=== PATIENT | male | born 1950 | race Caucasian/White ===

== ENCOUNTER 2017-09-22 07:56 | Outpatient (CLI) | payer OTHER | END 2017-09-22 08:25 | disposition home or self-care (01) | LOC: LAB 07:56 | DX: B20 Human immunodeficiency virus [HIV] disease (principal) ==

== ENCOUNTER → 2018-03-31 | Outpatient (CLI) | payer OTHER | END | disposition home or self-care (01) | LOC: LAB 07:07 | DX: B20 Human immunodeficiency virus [HIV] disease (principal); I10 Essential (primary) hypertension; E11.9 Type 2 diabetes mellitus without complications; R30.0 Dysuria; E78.00 Pure hypercholesterolemia, unspecified ==

== ENCOUNTER → 2018-06-04 06:55 | Outpatient (CLI) | payer OTHER | END | disposition home or self-care (01) | LOC: LAB 06:55 | DX: N42.89 Other specified disorders of prostate (principal) ==

== ENCOUNTER 2018-09-07 07:35 | Outpatient (CLI) | payer OTHER | END 2018-09-07 07:49 | disposition home or self-care (01) | LOC: LAB 07:35 | DX: E11.9 Type 2 diabetes mellitus without complications (principal); E78.00 Pure hypercholesterolemia, unspecified; I10 Essential (primary) hypertension ==

== ENCOUNTER 2019-03-08 06:35 | Outpatient (CLI) | payer OTHER | END 2019-03-08 15:00 | disposition home or self-care (01) | LOC: LAB 06:35 | DX: E11.9 Type 2 diabetes mellitus without complications (principal); I10 Essential (primary) hypertension; E78.00 Pure hypercholesterolemia, unspecified; N30.00 Acute cystitis without hematuria ==

== ENCOUNTER 2019-07-16 07:55 | Outpatient (CLI) | payer OTHER | END 2019-07-16 08:03 | disposition home or self-care (01) | LOC: LAB 07:55 | DX: N42.0 Calculus of prostate (principal) ==

== ENCOUNTER 2019-09-06 06:58 | Outpatient (CLI) | payer OTHER | END 2019-09-06 07:04 | disposition home or self-care (01) | LOC: LAB 06:58 | DX: E11.9 Type 2 diabetes mellitus without complications (principal); I10 Essential (primary) hypertension; E78.00 Pure hypercholesterolemia, unspecified; R30.0 Dysuria ==

== ENCOUNTER → 2020-03-27 07:36 | Outpatient (CLI) | payer OTHER | END | disposition home or self-care (01) | LOC: LAB 07:36 | PROVIDERS: ATTEND Internal Medicine Infectious Disease | DX: R30.0 Dysuria (principal); I10 Essential (primary) hypertension; E11.00 Type 2 diabetes mellitus with hyperosmolarity without nonketotic hyperglycemic-hyperosmolar coma (NKHHC); E78.00 Pure hypercholesterolemia, unspecified ==

== ENCOUNTER 2020-08-14 08:29 | Outpatient (CLI) | payer OTHER | END 2020-08-14 08:38 | disposition home or self-care (01) | LOC: LAB 08:29 | PROVIDERS: ATTEND Urology | DX: N40.1 Benign prostatic hyperplasia with lower urinary tract symptoms (principal) ==

== ENCOUNTER → 2020-11-13 07:30 | Outpatient (CLI) | payer OTHER | END | disposition home or self-care (01) | LOC: LAB 07:30 | PROVIDERS: ATTEND Internal Medicine Infectious Disease | DX: I10 Essential (primary) hypertension (principal); E11.9 Type 2 diabetes mellitus without complications; E78.00 Pure hypercholesterolemia, unspecified; D50.8 Other iron deficiency anemias; R30.0 Dysuria ==

== ENCOUNTER → 2021-05-22 07:39 | Outpatient (CLI) | payer OTHER | END | disposition home or self-care (01) | LOC: LAB 07:39 | PROVIDERS: ATTEND Internal Medicine Infectious Disease | DX: I10 Essential (primary) hypertension (principal); E11.9 Type 2 diabetes mellitus without complications; E78.00 Pure hypercholesterolemia, unspecified ==

== ENCOUNTER → 2021-08-21 07:39 | Outpatient (CLI) | payer OTHER | END | disposition home or self-care (01) | LOC: LAB 07:39 | PROVIDERS: ATTEND Urology | DX: N40.0 Benign prostatic hyperplasia without lower urinary tract symptoms (principal) ==

== ENCOUNTER 2021-11-13 06:41 | Outpatient (CLI) | payer OTHER | END 2021-11-13 06:53 | disposition home or self-care (01) | LOC: LAB 06:41 | PROVIDERS: ATTEND Internal Medicine Infectious Disease | DX: E11.9 Type 2 diabetes mellitus without complications (principal); I10 Essential (primary) hypertension; E78.00 Pure hypercholesterolemia, unspecified; D50.9 Iron deficiency anemia, unspecified; R30.0 Dysuria; B20 Human immunodeficiency virus [HIV] disease ==

== ENCOUNTER → 2022-05-13 06:38 | Outpatient (CLI) | payer OTHER | END | disposition home or self-care (01) | LOC: LAB 06:38 | PROVIDERS: ATTEND Internal Medicine Infectious Disease | DX: I10 Essential (primary) hypertension (principal); E11.9 Type 2 diabetes mellitus without complications; E78.00 Pure hypercholesterolemia, unspecified; D50.9 Iron deficiency anemia, unspecified; E30.0 Delayed puberty ==

== ENCOUNTER → 2022-09-10 07:22 | Outpatient (CLI) | payer OTHER | END | disposition home or self-care (01) | LOC: LAB 07:22 | PROVIDERS: ATTEND Urology | DX: N40.0 Benign prostatic hyperplasia without lower urinary tract symptoms (principal) ==

== ENCOUNTER → 2022-11-05 06:57 | Outpatient (CLI) | payer OTHER | END | disposition home or self-care (01) | LOC: LAB 06:57 | DX: B20 Human immunodeficiency virus [HIV] disease (principal); E11.9 Type 2 diabetes mellitus without complications; E78.00 Pure hypercholesterolemia, unspecified; D50.9 Iron deficiency anemia, unspecified; R30.0 Dysuria ==

== ENCOUNTER 2023-02-12 06:56 | Outpatient (CLI) | payer OTHER | END 2023-02-12 06:57 | disposition home or self-care (01) | LOC: LAB 06:56 | DX: B20 Human immunodeficiency virus [HIV] disease (principal) ==

== ENCOUNTER → 2023-05-20 06:39 | Outpatient (CLI) | payer OTHER ==
[2023-05-20 07:20] LABS: PH,URINE 5.5 (5.0-8.0); URINE APPEARANCE Clear; URINE BILIRRUBIN Negative (NEGATIVE); URINE BLOOD Negative; URINE COLOR Yellow; URINE GLUCOSE Negative (NEGATIVE); URINE LEUKOCYTE Negative; URINE NITRATE Negative; URINE PROTEIN Negative (NEGATIVE); URINE UROBILINOGEN 0.2 E.U./dl
[2023-05-20 07:31] LABS: URINE BACTERIA 42.8 uL (0.0-1933); URINE EPITHELIAL CELLS 9.4 uL (0.0-38.8); URINE WBC 4.1 uL (0.0-23.2)
[2023-05-20 07:35] LABS: HEMATOCRIT 44.5 % (39.0-48.0); HEMOGLOBIN 14.9 g/dL (13-16.00); MEAN CELL VOLUME 100.6 fL (80.0-100.00); MEAN CORPUSCULAR HEMOGLOBIN 33.7 pg (27.00-32.0); MEAN CORPUSCULAR HGB CONC 33.6 g/dl (32.0-36.0); PLATELET COUNT 216 K/uL (150-450); RED BLOOD COUNT 4.43 M/uL (4.00-6.00); RED CELL DISTRIBUTION WIDTH 13.3 % (11.5-14.5)
[2023-05-20 07:43] LABS: ALBUMIN 3.8 gm/dL (3.4-5.0); BILIRUBIN TOTAL 0.62 mg/dL (0.3-1.2); CALCIUM 8.9 mg/dL (8.5-10.1); CHOL HDL RATIO 3.6 (0-5.0); CREATININE SERUM 1.07 mg/dL (0.70-1.30); GFR 67.74; POTASSIUM 4.31 mEq/L (3.5-5.1); TOTAL PROTEIN 6.8 gm/dL (6.4-8.2)
== END | disposition home or self-care (01) ==
LOC: LAB 06:39
DX: E11.9 Type 2 diabetes mellitus without complications (principal); E78.00 Pure hypercholesterolemia, unspecified; R30.0 Dysuria; D50.9 Iron deficiency anemia, unspecified; B20 Human immunodeficiency virus [HIV] disease

== ENCOUNTER 2023-06-11 09:26 | Outpatient (CLI) | payer OTHER ==
[2023-06-11 10:36] LABS: T4 TOTAL 9.33 UG/DL (4.5-12.1); TSH 1.26 uIU/mL (0.358-3.74)
== END 2023-06-11 09:28 | disposition home or self-care (01) ==
LOC: LAB 09:26
PROVIDERS: ATTEND Internal Medicine Infectious Disease
DX: E03.8 Other specified hypothyroidism (principal)

== ENCOUNTER 2023-09-09 07:15 | Outpatient (CLI) | payer OTHER ==
[2023-09-09 08:21] LABS: PH,URINE 5.5 (5.0-8.0); URINE APPEARANCE Clear; URINE BILIRRUBIN Negative (NEGATIVE); URINE BLOOD Negative; URINE COLOR Yellow; URINE GLUCOSE Negative (NEGATIVE); URINE LEUKOCYTE Negative; URINE NITRATE Negative; URINE PROTEIN Negative (NEGATIVE); URINE UROBILINOGEN 0.2 E.U./dl
[2023-09-09 08:25] LABS: URINE BACTERIA 17.6 uL (0.0-1933); URINE EPITHELIAL CELLS 8.1 uL (0.0-38.8); URINE WBC 5.4 uL (0.0-23.2)
== END 2023-09-09 07:21 | disposition home or self-care (01) ==
LOC: LAB 07:15
PROVIDERS: ATTEND Urology
DX: N40.1 Benign prostatic hyperplasia with lower urinary tract symptoms (principal)

== ENCOUNTER 2023-11-26 07:02 | Outpatient (CLI) | payer OTHER ==
[2023-11-26 08:08] LABS: PH,URINE 5.5 (5.0-8.0); URINE APPEARANCE Clear; URINE BILIRRUBIN Negative (NEGATIVE); URINE BLOOD Negative; URINE COLOR Yellow; URINE GLUCOSE Negative (NEGATIVE); URINE LEUKOCYTE Negative; URINE NITRATE Negative; URINE PROTEIN Negative (NEGATIVE); URINE UROBILINOGEN 0.2 E.U./dl
[2023-11-26 08:12] LABS: HEMATOCRIT 45.9 % (39.0-48.0); HEMOGLOBIN 15.3 g/dL (13-16.00); MEAN CELL VOLUME 97.8 fL (80.0-100.00); MEAN CORPUSCULAR HEMOGLOBIN 32.6 pg (27.00-32.0); MEAN CORPUSCULAR HGB CONC 33.3 g/dl (32.0-36.0); PLATELET COUNT 220 K/uL (150-450); RED BLOOD COUNT 4.69 M/uL (4.00-6.00); RED CELL DISTRIBUTION WIDTH 14.1 % (11.5-14.5)
[2023-11-26 08:13] LABS: URINE BACTERIA 15.1 uL (0.0-1933); URINE EPITHELIAL CELLS 6.9 uL (0.0-38.8); URINE WBC 3.3 uL (0.0-23.2)
[2023-11-26 08:30] LABS: URINE RBC 1.2 uL (0.0-20.8)
[2023-11-26 08:47] LABS: BILIRUBIN TOTAL 0.58 mg/dL (0.3-1.2); CALCIUM 9.8 mg/dL (8.5-10.1); CHOL HDL RATIO 2.9 (0-5.0); CREATININE SERUM 0.97 mg/dL (0.70-1.30); GFR 75.86; GLOBULINA 3.2 G/DL (2.4-3.5); TOTAL PROTEIN 7.2 gm/dL (6.4-8.2)
== END 2023-11-26 14:39 | disposition home or self-care (01) ==
LOC: LAB 07:02
PROVIDERS: ATTEND Internal Medicine Infectious Disease
DX: B20 Human immunodeficiency virus [HIV] disease (principal); E11.9 Type 2 diabetes mellitus without complications; E78.00 Pure hypercholesterolemia, unspecified; R30.0 Dysuria; I10 Essential (primary) hypertension

== ENCOUNTER → 2024-06-01 06:32 | Outpatient (CLI) | payer OTHER ==
[2024-06-01 07:17] LABS: HEMOGLOBIN 14.3 g/dL (13-16.00); MEAN CELL VOLUME 101.8 fL (80.0-100.00); MEAN CORPUSCULAR HEMOGLOBIN 34.8 pg (27.00-32.0); MEAN CORPUSCULAR HGB CONC 34.1 g/dl (32.0-36.0); PLATELET COUNT 214 K/uL (150-450); RED BLOOD COUNT 4.12 M/uL (4.00-6.00); RED CELL DISTRIBUTION WIDTH 13.7 % (11.5-14.5)
[2024-06-01 07:18] LABS: URINE APPEARANCE Clear; URINE BILIRRUBIN Negative (NEGATIVE); URINE BLOOD Negative; URINE COLOR Yellow; URINE GLUCOSE Negative (NEGATIVE); URINE KETONE Negative (NEGATIVE); URINE LEUKOCYTE Negative; URINE NITRATE Negative; URINE PROTEIN Negative (NEGATIVE); URINE UROBILINOGEN 0.2 E.U./dl
[2024-06-01 07:21] LABS: URINE BACTERIA 26.4 uL (0.0-1933); URINE EPITHELIAL CELLS 7.8 uL (0.0-38.8)
[2024-06-01 07:23] LABS: URINE CAST 0.15 uL (0.0-1.40); URINE RBC 1.2 uL (0.0-20.8)
[2024-06-01 07:50] LABS: ALBUMIN 3.9 gm/dL (3.4-5.0); BILIRUBIN TOTAL 0.38 mg/dL (0.3-1.2); CALCIUM 9.3 mg/dL (8.5-10.1); CHOL HDL RATIO 3.9 (0-5.0); CREATININE SERUM 0.95 mg/dL (0.70-1.30); GFR 77.5; GLOBULINA 3.1 G/DL (2.4-3.5); POTASSIUM 4.76 mEq/L (3.5-5.1)
[2024-06-04 10:47] LABS: hiv 1 < 20 (.)
== END | disposition home or self-care (01) ==
LOC: LAB 06:32
PROVIDERS: ATTEND Internal Medicine Infectious Disease
DX: D50.9 Iron deficiency anemia, unspecified (principal); R30.0 Dysuria; I10 Essential (primary) hypertension; E11.9 Type 2 diabetes mellitus without complications; E78.00 Pure hypercholesterolemia, unspecified; B20 Human immunodeficiency virus [HIV] disease

== ENCOUNTER 2024-09-24 06:32 | Outpatient (CLI) | payer OTHER ==
[2024-09-24 07:40] LABS: URINE APPEARANCE Clear; URINE BILIRRUBIN Negative (NEGATIVE); URINE BLOOD Negative; URINE COLOR Yellow; URINE GLUCOSE Negative (NEGATIVE); URINE KETONE Negative (NEGATIVE); URINE LEUKOCYTE Negative; URINE NITRATE Negative; URINE PROTEIN Negative (NEGATIVE); URINE UROBILINOGEN 0.2 E.U./dl
[2024-09-24 07:41] LABS: URINE BACTERIA 31.8 uL (0.0-1933); URINE EPITHELIAL CELLS 10.4 uL (0.0-38.8); URINE WBC 5.8 uL (0.0-23.2)
[2024-09-24 08:05] LABS: URINE CAST 0.14 uL (0.0-1.40); URINE RBC 1.9 uL (0.0-20.8)
== END 2024-09-24 06:39 | disposition home or self-care (01) ==
LOC: LAB 06:32
DX: N40.0 Benign prostatic hyperplasia without lower urinary tract symptoms (principal)

== ENCOUNTER 2024-11-17 06:39 | Outpatient (CLI) | payer OTHER ==
[2024-11-17 07:29] LABS: PH,URINE 5.5 (5.0-8.0); URINE APPEARANCE Clear; URINE BACTERIA 35.4 uL (0.0-1933); URINE BILIRRUBIN Negative (NEGATIVE); URINE BLOOD Negative; URINE COLOR Dark Yellow; URINE EPITHELIAL CELLS 9.6 uL (0.0-38.8); URINE GLUCOSE Negative (NEGATIVE); URINE KETONE Negative (NEGATIVE); URINE LEUKOCYTE Trace; URINE NITRATE Negative; URINE PROTEIN Negative (NEGATIVE); URINE RBC 3.9 uL (0.0-20.8); URINE WBC 3.4 uL (0.0-23.2)
[2024-11-17 07:31] LABS: URINE CAST 0.73 uL (0.0-1.40)
[2024-11-17 07:47] LABS: HEMATOCRIT 44.3 % (39.0-48.0); HEMOGLOBIN 14.9 g/dL (13-16.00); MEAN CELL VOLUME 100.6 fL (80.0-100.00); MEAN CORPUSCULAR HEMOGLOBIN 33.7 pg (27.00-32.0); MEAN CORPUSCULAR HGB CONC 33.5 g/dl (32.0-36.0); PLATELET COUNT 288 K/uL (150-450); RED CELL DISTRIBUTION WIDTH 13.6 % (11.5-14.5)
[2024-11-17 08:54] LABS: ALBUMIN 3.4 gm/dL (3.4-5.0); BILIRUBIN TOTAL 0.75 mg/dL (0.3-1.2); CALCIUM 9.6 mg/dL (8.5-10.1); CHOL HDL RATIO 2.8 (0-5.0); CREATININE SERUM 0.99 mg/dL (0.70-1.30); GFR 73.89; GLOBULINA 3.8 G/DL (2.4-3.5); POTASSIUM 4.76 mEq/L (3.5-5.1); TOTAL PROTEIN 7.2 gm/dL (6.4-8.2)
== END 2024-11-17 06:43 | disposition home or self-care (01) ==
LOC: LAB 06:39
DX: B20 Human immunodeficiency virus [HIV] disease (principal); E78.1 Pure hyperglyceridemia; E11.9 Type 2 diabetes mellitus without complications; I10 Essential (primary) hypertension; E78.00 Pure hypercholesterolemia, unspecified; R30.0 Dysuria; E55.9 Vitamin D deficiency, unspecified

== ENCOUNTER 2024-11-29 06:50 | Outpatient (CLI) | payer OTHER ==
[2024-11-29 07:55] LABS: HEMATOCRIT 42.3 % (39.0-48.0); HEMOGLOBIN 14.3 g/dL (13-16.00); MEAN CELL VOLUME 100.7 fL (80.0-100.00); MEAN CORPUSCULAR HGB CONC 33.8 g/dl (32.0-36.0); PLATELET COUNT 332 K/uL (150-450); RED BLOOD COUNT 4.21 M/uL (4.00-6.00); RED CELL DISTRIBUTION WIDTH 13.8 % (11.5-14.5)
[2024-11-29 08:11] LABS: INR 1.04; PARTIAL THROMBOPLASTIN TIME 27.6 SECONDS (22.0-34.0); PROTHROMBIN TIME 11.3 SECONDS (9.0-11.5)
[2024-11-29 08:28] LABS: ALBUMIN 3.4 gm/dL (3.4-5.0); BILIRUBIN TOTAL 0.36 mg/dL (0.3-1.2); CALCIUM 9.3 mg/dL (8.5-10.1); CREATININE SERUM 1.05 mg/dL (0.70-1.30); GFR 69.04; GLOBULINA 3.3 G/DL (2.4-3.5); POTASSIUM 4.53 mEq/L (3.5-5.1); TOTAL PROTEIN 6.7 gm/dL (6.4-8.2)
== END 2024-11-29 06:55 | disposition home or self-care (01) ==
LOC: LAB 06:50
PROVIDERS: ATTEND Ophthalmology
DX: D68.8 Other specified coagulation defects (principal); H25.013 Cortical age-related cataract, bilateral; Z01.811 Encounter for preprocedural respiratory examination; I10 Essential (primary) hypertension

== ENCOUNTER 2025-02-04 08:54 | Outpatient (CLI) | payer OTHER | END 2025-02-04 09:02 | disposition home or self-care (01) | LOC: SONOGRAMA 08:54 | PROVIDERS: ATTEND Urology | DX: N40.1 Benign prostatic hyperplasia with lower urinary tract symptoms (principal); R36.1 Hematospermia ==

== ENCOUNTER 2025-04-22 06:56 | Outpatient (CLI) | payer OTHER ==
[2025-04-22 08:46] LABS: BUN CREA RATIO 22.0 (7.0-25.0); CREATININE SERUM 0.91 mg/dL (0.70-1.30); GFR 81.22; GLUCOSE FASTING 89.0 mg/dL (65-100); OSMOLALITY SERUM 291.0 MOSM/KG (275-295)
== END 2025-04-22 06:57 | disposition home or self-care (01) ==
LOC: LAB 06:56
DX: I10 Essential (primary) hypertension (principal)

== ENCOUNTER 2025-05-04 11:44 | Outpatient (CLI) | payer OTHER ==
[2025-05-04 13:14] LABS: ob NEGATIVE (NEGATIVE)
== END 2025-05-04 12:06 | disposition home or self-care (01) ==
LOC: LAB 11:44
DX: E11.9 Type 2 diabetes mellitus without complications (principal); I10 Essential (primary) hypertension; E78.00 Pure hypercholesterolemia, unspecified; E03.8 Other specified hypothyroidism; D59.9 Acquired hemolytic anemia, unspecified; R30.0 Dysuria